=== PATIENT | male | born 1965 | race Two or more races ===

== ENCOUNTER 2017-02-15 20:24 | Emergency (ER) | payer MEDICAID ==
[~2017-02-15] VITALS: Ht 170.2 cm; Wt 59.0 kg
[~2017-02-15 20:24] MED LIST: ASPIRIN81 MG ORAL; KEPPRA500 M3 ORAL; LACTULOSE20 GM/301 ORAL; LOPRESSOR25 M1 ORAL; MULTIVITAMINS1 EAC2 ORAL; NKM; THIAMINE HCL100 MG ORAL; XIFAXAN550 MG ORAL
[2017-02-15 20:31] VITALS: BP 129/87
--- NOTE | 2017-02-15 21:47 | Emergency Room Report ---
History of Present Illness General Chief Complaint: Alcohol Intoxication Source: Patient, EMS (Bonifacio Goel) Present Illness HPI Patient is a 52-year-old male who presented after increased altered level of consciousness as well as epigastric abdominal pain. Patient reported having recent alcohol use he stated pain began after that. He denied loss of consciousness. Patient reports having no hematemesis. He denies any fever (Bonifacio Goel) Allergies: Coded Allergies: No Known Allergies (Unverified , 04/12/16) Patient History Past Medical History: see triage record Reviewed Nursing Documentation: PMH: Agreed, PSxH: Agreed (Bonifacio Goel) Nursing Documentation-PMH Hx Cancer: No Hx Gastrointestinal Problems: Yes - gastritis Hx Neurological Problems: No (Bonifacio Goel) Review of Systems All Other Systems: limited - by poor historian (Bonifacio Goel) Physical Exam Vital Signs Date Time Temp Pulse Resp B/P Pulse Ox O2 Delivery O2 Flow Rate FiO2 02/15/17 20:21 97.9 106 18 129/87 96 Room Air Sp02 EP Interpretation: reviewed, normal General Appearance: normal inspection, well appearing, no apparent distress, alert, GCS 15, non-toxic Head: atraumatic ENT: normal ENT inspection, hearing grossly normal, normal voice Neck: normal inspection, full range of motion, supple, no bony tend Respiratory: normal inspection, lungs clear, normal breath sounds, no respiratory distress, no retraction, no wheezing Cardiovascular #1: regular rate, rhythm, no edema Gastrointestinal: normal inspection, normal bowel sounds, non tender, soft, no guarding, no hernia Genitourinary: no CVA tenderness Musculoskeletal: normal inspection, back normal, normal range of motion Neurologic: normal inspection, alert, oriented x3, responsive, tube worker III-XII nml as tested, speech normal Psychiatric: normal inspection, judgement/insight normal, mood/affect normal Skin: normal inspection, normal color, no rash (Bonifacio Goel) Medical Decision Making Diagnostic Impression: Primary Impression: Acute alcoholic intoxication Additional Impression: Gastritis ER Course Patient presented for abdominal pain. Differential diagnoses included ischemic bowel, appendicitis, perforated viscus, abdominal aortic aneurysm, inferior myocardial infarction, viral gastroenteritis Patient's benign exam and does not appear to require any further imaging or laboratory testing at this time. The patient was given a Mylanta. Patient appears to be intoxicated with alcohol and he was endorsed to Dr. Logan pending sobering. (Bonifacio Goel) ER Course Received signout from Dr Goel at 9pm to re-eval patient for sobriety Was observed overnight without incident Slept all night in AM, tolerating PO, ambulating with steady gait Counseled on danger of repeated ETOH abuse DC home (RILEY LOGAN M.D.) Last Vital Signs Date Time Temp Pulse Resp B/P Pulse Ox O2 Delivery O2 Flow Rate FiO2 02/15/17 20:31 97.9 18 129/87 96 Room Air 02/15/17 20:21 106 Status: improved (Bonifacio Goel) Status: improved (RILEY LOGAN M.D.) Disposition: HOME, SELF-CARE Condition: Stable Bonifacio Goel Feb 15, 2017 21:47 RILEY LOGAN M.D. Feb 16, 2017 03:49
[2017-02-15 21:51] VITALS: BP 106/71
[2017-02-16 04:49] VITALS: BP_SYST 106; BP_SYST 110; BP_DIAS 71; BP_DIAS 78
== END 2017-02-16 04:50 | disposition home or self-care (01) ==
LOC: EDBD 20:24 → EMR 20:50
DX: F10.129 Alcohol abuse with intoxication, unspecified (principal); K29.70 Gastritis, unspecified, without bleeding
CPT/HCPCS: 99284